=== PATIENT | male | born 1945 | race Caucasian/White ===

== ENCOUNTER 2023-11-27 16:41 | Inpatient (IN) ==
--- NOTE | 2023-11-27 17:26 | Emergency Department Note ---
Impression & Plan Acute CVA (cerebrovascular accident), New onset a-fib ED Provider Note NAME: NELLI GUTIERREZ AGE: 78 SEX: M : 1945 ARRIVES VIA: Walk-In INFORMANT: Patient ED PROVIDER(S): Mick Garcia DO CHIEF COMPLAINT: AMS HPI: Patient is an 78-year-old male who presents to the ER with a past medical history of a malignant tumor of the tonsil, anxiety and depression, traumatic subdural who presents to the ER for altered mental status. He was sitting at the bingo game was having trouble using his left arm and also was unresponsive for short period of time. He was brought in after being evaluated by EMS at which point he was back to normal. Family notes that he has been little bit more agitated. No history of A-fib. Denies any headache or change in vision. No chest pain or shortness of breath. No nausea, vomiting, or diarrhea. No dysuria, urgency, or frequency. No other exacerbating or remitting factors. Denies any weakness or numbness in the arms or legs. ADDITIONAL HISTORY OBTAINED: Per HPI Chronic Medical/Social Conditions Affecting Care: Per HPI PAST MEDICAL HISTORY:See Below PAST SURGICAL HISTORY:See Below FAMILY HISTORY:See Below SOCIAL HISTORY:See Below HOME MEDICATIONS:See Below ALLERGIES:See Below VITALS:See Below PHYSICAL EXAMINATION: GENERAL: Sitting up in bed, alert, well appearing, well nourished, no distress, non-toxic EYE EXAM: normal conjunctiva. OROPHARYNX: mucous membranes are moist NECK: supple, no nuchal rigidity, no adenopathy, non-tender LUNGS: Clear to auscultation. Normal chest wall mechanics HEART: no murmurs, S1 normal and S2 normal ABDOMEN: abdomen soft, non-tender, normo-active bowel sounds, no masses, no rebound or guarding. UPPER EXTREMITIES: upper extremities are grossly normal. LOWER EXTREMITIES: No pitting edema. NEURO EXAM: Normal sensorium, cranial nerves II-XII grossly intact, normal speech, no gross weakness of arms, no gross weakness of legs. MEDICAL DECISION MAKING: Patient is an 78-year-old male who presents ER for above-stated complaint. IV was established blood work is obtained. Labs show no significant leukocytosis or anemia. BMP with a slightly elevated BUN at 32. Bilirubin at 2.7. Troponin negative. Lipase negative. EKG shows a rate controlled A-fib. Based on his history I am concerned that this may be consistent with CVA initially upon arrival he declined chest x-ray and wanted to leave. He was actually initially evaluated on scene and refused. Family was able to encourage him to come here. He refused x-rays and CTs initially but then was eventually agreeable. CT was obtained and does suggest a stroke. On his exam he has no focal deficit. He was hypertensive with systolics in the 190s to 200. We allowed for permissive hypertensive. After the diagnosis of stroke he requested to leave. I had a protracted conversation with him as well as 3 other family members and had multiple family members on the phone conversing with him and after multiple attempts he was eventually agreeable to having some Ativan and staying. He did not want to stay as he had a bad experience at [place] and believes he is blessed that he made it to 78 and is not afraid of dying or having a stroke. Patient was eventually agreeable to taking aspirin and the Ativan and was admitted for further workup. Consults/Care Managements Discussions: Per [facility] Triage Nursing notes reviewed. Limited review of prior medical records performed Vital Signs: reviewed and remarkable for no significant abnormalities Differential diagnosis: Differential diagnoses includes but is not limited to toxic, metabolic, infectious, traumatic, cardiac, neurologic, hematologic, psychiatric and inflammatory etiologies. ER treatment provided: See below Diagnostics interpreted by me include EKG and cardiac monitoring as listed below: -Cardiac Monitoring: An order was placed for continuous cardiac monitoring. The monitor shows a rate of 60 with A-fib rhythm. -ECG: A-fib rate 65 Left axis No PVCs QTc 447 -Laboratory studies:Interpreted by me as stated above in MDM and shown below. 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 Seizure Malignant tumor of tonsil Hypercholesteremia Medical History History of fall Social History Smoking Status: Never smoker Preferred Language: Turkmen Feels Safe at Home: Yes Allergies Allergies Allergy/AdvReac Type Severity Reaction Status Date / Time No Known Allergies Allergy Verified 11/27/23 19:43 Home Meds Home Medications Medication Instructions Recorded Confirmed ascorbic acid (vitamin C) 500 mg 500 mg PO QDL 01/24/23 11/27/23 capsule atorvastatin 40 mg tablet 40 mg PO QPM 01/24/23 11/27/23 glucosam 750 mg-chondroi 100 1 tab PO QDL 01/24/23 11/27/23 mg-hyalur 1.65 mg-CF borate 108 mg tablet ([facility] [employer]) levetiracetam 500 mg tablet 500 mg PO BID 01/24/23 11/27/23 lisinopril 20 mg tablet 20 mg PO BID 01/24/23 11/27/23 metoprolol succinate 25 mg 12.5 mg PO QPM 01/24/23 11/27/23 tablet,extended release 24 hr multivitamin (Multiple Vitamins 1 tab PO QDL 01/24/23 11/27/23 tablet) acetaminophen 500 mg tablet 500 - 1,000 mg PO Q6H PRN 11/27/23 11/27/23 (Tylenol Extra Strength) PAIN/FEVER amlodipine 2.5 mg tablet 2.5 mg PO QAM 11/27/23 11/27/23 tamsulosin 0.4 mg capsule 0.4 mg PO QPM 11/27/23 11/27/23 trazodone 50 mg tablet 50 mg PO QPM 11/27/23 11/27/23 Results & Data (ED) Vital Signs Vital Signs - 24 hr 11/27/23 16:53 11/27/23 17:14 11/27/23 17:27 Temperature 36.8 C Temperature Source Temporal Artery Scan Pulse Rate 72 57 L Pulse Rate [Apical] 61 Pulse Rhythm Regular Pulse Strength Normal Respiratory Rate 18 17 Respiratory Effort / Characteristics Non-Labored Spontaneous Respiratory Depth Normal Respiratory Pattern Regular Blood Pressure 201/86 H Blood Pressure [Right Arm] 209/129 H Blood Pressure Mean 124 Blood Pressure Mean [Right Arm] 155 Blood Pressure Position Sitting Pulse Oximetry 97 97 Oxygen Delivery Method Room Air Room Air Sepsis Recent Fever Within 48 Hours No Sepsis New/Unexplained Change in Mental Status No Sepsis Action Taken by Nursing No Action Required 11/27/23 17:27 11/27/23 19:06 11/27/23 21:12 Temperature Temperature Source Pulse Rate Pulse Rate [Apical] 59 L 57 L Pulse Rhythm Pulse Strength Respiratory Rate 18 15 Respiratory Effort / Characteristics Respiratory Depth Respiratory Pattern Blood Pressure Blood Pressure [Right Arm] 198/94 H 178/81 H Blood Pressure Mean Blood Pressure Mean [Right Arm] 128 113 Blood Pressure Position Pulse Oximetry 97 99 97 Oxygen Delivery Method Room Air Room Air Room Air Sepsis Recent Fever Within 48 Hours Sepsis New/Unexplained Change in Mental Status Sepsis Action Taken by Nursing Laboratory Data 11/27/23 17:23 11/27/23 17:23 Lab Results 11/27/23 Range/Units 17:23 WBC 6.72 (4.8-10.8) K/ul RBC 5.02 (4.70-6.10) M/uL Hgb 15.7 (14.0-18.0) g/dl Hct 46.7 (42.0-52.0) % MCV 93.0 (80.0-100.0) fL MCH 31.3 (25.0-34.0) pg MCHC 33.6 (32.0-36.0) g/dL RDW Std Deviation 44.5 (36.4-46.3) fL RDW Coeff of Martir 13.2 (11.5-14.5) % Plt Count 162 (130-400) K/uL MPV 9.6 (9.4-12.4) fL Immature Gran % (Auto) 0.1 % Neut % (Auto) 79.1 % Lymph % (Auto) 6.8 % Runnels % (Auto) 12.9 % Eos % (Auto) 0.7 % Baso % (Auto) 0.4 % Neut # (Auto) 5.30 (1.40-6.50) K/uL Lymph # (Auto) 0.46 L (1.20-3.40) K/uL Runnels # (Auto) 0.87 H (0.11-0.59) K/uL Eos # (Auto) 0.05 (0.00-0.50) K/uL Baso # (Auto) 0.03 (0.00-0.20) K/uL Immature Gran # (Auto) 0.01 (0.01-0.20) K/uL Sodium 142 (136-145) mmol/L Potassium 3.9 (3.5-5.1) mmol/L Chloride 104 (98-107) mmol/L Carbon Dioxide 29 (21-32) mmol/L Anion Gap 9 (3-11) BUN 32 H (6-23) mg/dl Creatinine 1.13 (0.6-1.4) mg/dl Est Cr Clr Drug Dosing 57.2 ml/min Est GFR ( Amer) 70.8 ml/min Est GFR (Non-Af Amer) 61.1 ml/min BUN/Creatinine Ratio 28.3 H (10-20) Glucose 102 H (70-99(Fasting)) mg/dl Calcium 10.1 (8.6-10.3) mg/dl Total Bilirubin 2.7 H (0.2-1.0) mg/dl AST 20 (13-39) U/L ALT 14 (7-52) U/L Alkaline Phosphatase 151 H (34-104) U/L Troponin I High Sens 10.4 (0-20) pg/ml Total Protein 8.0 (6.0-8.3) gm/dl Albumin 4.9 (3.4-5.0) gm/dl Globulin 3.1 (2.5-4.0) gm/dl Albumin/Globulin Ratio 1.6 (0.9-2) Lipase 22 (11-82) U/L Administered Medications Discontinued Medications Aspirin (Aspirin Chew 324 Mg) 324 mg PO NOW STA Stop: 11/27/23 21:10 Last Admin: 11/27/23 21:30 Dose: 324 mg Documented By: LAURI Ioversol (Optiray 320 125ml) 119 ml IV ONCE ONE Stop: 11/27/23 18:35 Last Admin: 11/27/23 18:34 Dose: 119 ml Documented By: VERA Lorazepam (Lorazepam 1 Mg/1 Ml Syr Ed Inj Use) 1 mg IV ONE STA Stop: 11/27/23 19:55 Last Admin: 11/27/23 20:03 Dose: 1 mg Documented By: LAURI Imaging Data Radiologist's Impression: Chest X-Ray 11/27/23 17:18 XR chest 1V portable CLINICAL HISTORY: Chest pain, nonspecific TECHNIQUE: Single frontal radiograph of the chest was obtained. Comparison: None available at the time of this dictation. FINDINGS: No lines and tubes are seen. Cardiomegaly is noted. The aortic arch is calcified. The lungs are clear. No evidence of pleural effusion or pneumothorax. IMPRESSION: No acute chest disease. ACT 112: Negative or not required by law. Electronically signed by: Syed Kahn M.D. 11/27/2023 6:42 PM Head CTA 11/27/23 17:18 CR Exam(s): CTA HEAD W/WO Contrast IV Amt: 119 cc opti 320 EXAM: CT Angiography Head Without and With Intravenous Contrast CLINICAL HISTORY: Reason for exam: ams. TECHNIQUE: Axial computed tomographic angiography images of the head without and with intravenous contrast. CTDI is 35 mGy and DLP is 490.49 mGy-cm. Automated exposure control was utilized for the study. A dose lowering technique was utilized adhering to the principles of ALARA. MIP reconstructed images were created and reviewed. CONTRAST: Patient received 119 cc opti 320 of IV contrast COMPARISON: No relevant prior studies available. FINDINGS: VASCULATURE: Right internal carotid artery: Atherosclerotic calcifications within the cavernous right ICA causing approximately 50% stenosis. No aneurysm. Right anterior cerebral artery: Unremarkable. No occlusion or significant stenosis. No aneurysm. Right middle cerebral artery: No visualized thrombus within the right MCA. No aneurysm. Right posterior cerebral artery: Unremarkable. No occlusion or significant stenosis. No aneurysm. Right vertebral artery: Unremarkable as visualized. Left internal carotid artery: Atherosclerotic calcifications within the left cavernous ICA causing approximately 75% stenosis. No aneurysm. Left anterior cerebral artery: Unremarkable. No occlusion or significant stenosis. No aneurysm. Left middle cerebral artery: Unremarkable. No occlusion or significant stenosis. No aneurysm. Left posterior cerebral artery: Unremarkable. No occlusion or significant stenosis. No aneurysm. Left vertebral artery: Unremarkable as visualized. Basilar artery: Unremarkable. No occlusion or significant stenosis. No aneurysm. HEAD: Brain: Low-attenuation within the right posterior temporal lobe suspicious for acute infarct. No hemorrhage or mass-effect. Ventricles: Unremarkable. No ventriculomegaly. Bones/joints: No acute fracture. Soft tissues: Unremarkable. Sinuses: Unremarkable as visualized. No acute sinusitis. Mastoid air cells: Unremarkable as visualized. No mastoid effusion. IMPRESSION: 1. Low-attenuation within the right posterior temporal lobe suspicious for acute infarct. No hemorrhage or mass-effect. 2. No visualized thrombus within the right MCA. 3. Atherosclerotic calcifications within the cavernous right ICA causing approximately 50% stenosis. 4. Atherosclerotic calcifications within the left cavernous ICA causing approximately 75% stenosis. Communications: Call Doctor Stroke Electronically signed by: Panchito Clements MD 11/27/23 19:35 PM Neck CTA 11/27/23 17:18 Exam(s): CTA NECK With Contrast IV Amt: 119 cc opti 320 EXAM: CT Angiography Neck With Intravenous Contrast CLINICAL HISTORY: Reason for exam: ams. TECHNIQUE: Routine carotid CT angiography protocol was performed with intravenous contrast. NASCET criteria using the distal ICAs for comparison were used for evaluation of stenoses. CTDI is 35.29 mGy and DLP is 624.41 mGy-cm. Automated exposure control was utilized for the study. A dose lowering technique was utilized adhering to the principles of ALARA. MIP reconstructed images were created and reviewed. CONTRAST: Patient received 119 cc opti 320 of IV contrast COMPARISON: None. FINDINGS: VASCULATURE: Right common carotid artery: Unremarkable. No occlusion or significant stenosis. No dissection. Right internal carotid artery: Atherosclerotic calcifications at the right carotid bulb. Less than 50% stenosis. No dissection. Right vertebral artery: Unremarkable. No occlusion or significant stenosis. No dissection. Left common carotid artery: Unremarkable. No occlusion or significant stenosis. No dissection. Left internal carotid artery: Unremarkable. Extracranial segment is patent with no occlusion or significant stenosis. No dissection. Left vertebral artery: Unremarkable. No occlusion or significant stenosis. No dissection. Aorta: Mild aneurysmal proximal descending thoracic aorta measuring 4. 1 cm. NECK: Bones/joints: Multilevel degenerative changes within the cervical spine. No acute fracture. Soft tissues: Unremarkable. Lung apices: Clear. CAROTID STENOSIS REFERENCE USING NASCET CRITERIA: % ICA stenosis = (1 - narrowest ICA diameter/diameter of distal cervical ICA) x 100. Mild - <50% stenosis. Moderate - 50-69% stenosis. Severe - 70-94% stenosis. Near occlusion - 95-99% stenosis. Occluded - 100% stenosis. IMPRESSION: 1. No flow-limiting stenosis within the cervical arteries. 2. 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 Electronically signed by: Panchito Clements MD 11/27/23 19:29 PM Discharge Plan Visit Data Chief Complaint: Hypertension Stated Complaint: A FIB,HYPERTENSION, HEART RATE LOW ED Provider: Mick Garcia Discharge Problem: Acute CVA (cerebrovascular accident), New onset a-fib Forms Stand Alone Forms: My [facility] Prescriptions Prescriptions: No Action metoprolol succinate 25 mg tablet extended release 24 hr 12.5 mg PO QPM lisinopril 20 mg tablet 20 mg PO BID levetiracetam 500 mg tablet 500 mg PO BID atorvastatin 40 mg tablet 40 mg PO QPM multivitamin [Multiple Vitamins] Tablet 1 tab PO QDL [facility] [employer] [facility] 750 mg-100 mg- 1.65 mg-108 mg tablet 1 tab PO QDL ascorbic acid (vitamin C) 500 mg capsule 500 mg PO QDL trazodone 50 mg tablet 50 mg PO QPM amlodipine 2.5 mg tablet 2.5 mg PO QAM acetaminophen [Tylenol Extra Strength] 500 mg Tablet 500 - 1,000 mg PO Q6H PRN (Reason: PAIN/FEVER) tamsulosin 0.4 mg capsule 0.4 mg PO QPM Referrals Referrals: Mary Ann Ha [Primary Care Provider] -
[2023-11-27 17:47] LABS: Basophils # (auto) 0.03 K/uL (0.00-0.20); Basophils % (auto) 0.4 %; Eosinophils # (auto) 0.05 K/uL (0.00-0.50); Eosinophils % (auto) 0.7 %; Hematocrit (blood only) 46.7 % (42.0-52.0); Hemoglobin 15.7 g/dl (14.0-18.0); Immature Granulocytes # (auto) 0.01 K/uL (0.01-0.20); Immature Granulocytes % (auto) 0.1 %; Lymphocytes # (auto) 0.46 K/uL (1.20-3.40); Lymphocytes % (auto) 6.8 %; Mean Corpuscular Hemoglobin 31.3 pg (25.0-34.0); Mean Corpuscular Hgb Conc 33.6 g/dL (32.0-36.0); Mean Platelet Volume 9.6 fL (9.4-12.4); Monocytes # (auto) 0.87 K/uL (0.11-0.59); Monocytes % (auto) 12.9 %; Neutrophils % (auto) 79.1 %; Platelet Count 162 K/uL (130-400); RDW Coefficient of Variation 13.2 % (11.5-14.5); RDW Standard Deviation 44.5 fL (36.4-46.3); Red Blood Count 5.02 M/uL (4.70-6.10); White Blood Count 6.72 K/ul (4.8-10.8)
[2023-11-27 18:06] LABS: Albumin Globulin Ratio 1.6 (0.9-2); Albumin Level 4.9 gm/dl (3.4-5.0); BUN Creatinine Ratio 28.3 (10-20); Bilirubin,Total 2.7 mg/dl (0.2-1.0); Calcium 10.1 mg/dl (8.6-10.3); Creatinine Clr Calc Pharmacy 57.2 ml/min; Est GFR (African American) 70.8 ml/min; Est GFR (Non-African American) 61.1 ml/min; Globulin 3.1 gm/dl (2.5-4.0); Potassium 3.9 mmol/L (3.5-5.1)
[2023-11-27 18:10] LABS: Troponin I High Sensitivity 10.4 pg/ml (0-20)
[2023-11-27] MEDS: OPTIRAY 320 125ml IV ONE (18:34)
--- NOTE | 2023-11-27 18:43 | XRay Report ---
XR chest 1V portable CLINICAL HISTORY: Chest pain, nonspecific TECHNIQUE: Single frontal radiograph of the chest was obtained. Comparison: None available at the time of this dictation. FINDINGS: No lines and tubes are seen. Cardiomegaly is noted. The aortic arch is calcified. The lungs are clear . No evidence of pleural effusion or pneumothorax. IMPRESSION: No acute chest disease. ACT 112: Negative or not required by law. Electronically signed by: Syed Kahn M.D. 11/27/2023 6:42 PM
--- NOTE | 2023-11-27 19:30 | CT Scan Report ---
Exam(s): CTA NECK With Contrast IV Amt: 119 cc opti 320 EXAM: CT Angiography Neck With Intravenous Contrast CLINICAL HISTORY: Reason for exam: ams. TECHNIQUE: Routine carotid CT angiography protocol was performed with intravenous contrast. NASCET criteria using the distal ICAs for comparison were used for evaluation of stenoses. CTDI is 35.29 mGy and DLP is 624.41 mGy-cm. Automated exposure control was utilized for the study. A dose lowering technique was utilized adhering to the principles of ALARA. MIP reconstructed images were created and reviewed. CONTRAST: Patient received 119 cc opti 320 of IV contrast COMPARISON: None. FINDINGS: VASCULATURE: Right common carotid artery: Unremarkable. No occlusion or significant stenosis. No dissection. Right internal carotid artery: Atherosclerotic calcifications at the right carotid bulb. Less than 50% stenosis. No dissection. Right vertebral artery: Unremarkable. No occlusion or significant stenosis. No dissection. Left common carotid artery: Unremarkable. No occlusion or significant stenosis. No dissection. Left internal carotid artery: Unremarkable. Extracranial segment is patent with no occlusion or significant stenosis. No dissection. Left vertebral artery: Unremarkable. No occlusion or significant stenosis. No dissection. Aorta: Mild aneurysmal proximal descending thoracic aorta measuring 4. 1 cm. NECK: Bones/joints: Multilevel degenerative changes within the cervical spine. No acute fracture. Soft tissues: Unremarkable. Lung apices: Clear. CAROTID STENOSIS REFERENCE USING NASCET CRITERIA: % ICA stenosis = (1 - narrowest ICA diameter/diameter of distal cervical ICA) x 100. Mild - <50% stenosis. Moderate - 50-69% stenosis. Severe - 70-94% stenosis. Near occlusion - 95-99% stenosis. Occluded - 100% stenosis. IMPRESSION: 1. No flow-limiting stenosis within the cervical arteries. 2. 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 Electronically signed by: Panchito Clements MD 11/27/23 19:29 PM
--- NOTE | 2023-11-27 19:36 | CT Scan Report ---
Exam(s): CTA HEAD W/WO Contrast IV Amt: 119 cc opti 320 EXAM: CT Angiography Head Without and With Intravenous Contrast CLINICAL HISTORY: Reason for exam: ams. TECHNIQUE: Axial computed tomographic angiography images of the head without and with intravenous contrast. CTDI is 35 mGy and DLP is 490.49 mGy-cm. Automated exposure control was utilized for the study. A dose lowering technique was utilized adhering to the principles of ALARA. MIP reconstructed images were created and reviewed. CONTRAST: Patient received 119 cc opti 320 of IV contrast COMPARISON: No relevant prior studies available. FINDINGS: VASCULATURE: Right internal carotid artery: Atherosclerotic calcifications within the cavernous right ICA causing approximately 50% stenosis. No aneurysm. Right anterior cerebral artery: Unremarkable. No occlusion or significant stenosis. No aneurysm. Right middle cerebral artery: No visualized thrombus within the right MCA. No aneurysm. Right posterior cerebral artery: Unremarkable. No occlusion or significant stenosis. No aneurysm. Right vertebral artery: Unremarkable as visualized. Left internal carotid artery: Atherosclerotic calcifications within the left cavernous ICA causing approximately 75% stenosis. No aneurysm. Left anterior cerebral artery: Unremarkable. No occlusion or significant stenosis. No aneurysm. Left middle cerebral artery: Unremarkable. No occlusion or significant stenosis. No aneurysm. Left posterior cerebral artery: Unremarkable. No occlusion or significant stenosis. No aneurysm. Left vertebral artery: Unremarkable as visualized. Basilar artery: Unremarkable. No occlusion or significant stenosis. No aneurysm. HEAD: Brain: Low-attenuation within the right posterior temporal lobe suspicious for acute infarct. No hemorrhage or mass-effect. Ventricles: Unremarkable. No ventriculomegaly. Bones/joints: No acute fracture. Soft tissues: Unremarkable. Sinuses: Unremarkable as visualized. No acute sinusitis. Mastoid air cells: Unremarkable as visualized. No mastoid effusion. IMPRESSION: 1. Low-attenuation within the right posterior temporal lobe suspicious for acute infarct. No hemorrhage or mass-effect. 2. No visualized thrombus within the right MCA. 3. Atherosclerotic calcifications within the cavernous right ICA causing approximately 50% stenosis. 4. Atherosclerotic calcifications within the left cavernous ICA causing approximately 75% stenosis. Communications: Call Doctor Stroke Electronically signed by: Panchito Clements MD 11/27/23 19:35 PM
[2023-11-27] MEDS: LORazepam 1 MG/1 ML SYR ED Inj Use IV STA (20:03)
[2023-11-27] MEDS: ASPIRIN CHEW 324 MG PO STA (21:30)
--- NOTE | 2023-11-27 21:57 | History & Physical Report ---
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 For the subdural hematoma he did not had any surgeries. He again soon presented with seizures and at the time seems subdural hematoma was getting bigger and was loaded with Dilantin as per records. As per daughter since then his Eliquis and aspirin was stopped. In 2022 he was started treatment for tonsillar cancer with chemo and radiation and finished with therapy. And since then he is in remission as per daughter. Currently lives alone. Ambulates without support though is somewhat wobbly as per daughter. Eats regular food. No recent illness. Patient seems today around 230pm playing bingo when he suddenly became confused for about 5 minutes and then after that he was not able to use his left arm ,EMS was called and brought him here .Currently is back to his usual self. CT scan showing possible CVA. Currently alert and oriented. Denies any headache. Denies any dizziness. No blurred vision. Somewhat hard of hearing. No runny nose. No sore throat. No cough. No fevers. No chest pain or shortness of breath. No nausea and abdominal pain. Normal bowel and bladder movements. Ambulated to bathroom in Er per daughter.Hemodynamics are okay. Per ER initially has been difficult to get him admitted but finally agreed. Daughter is in the room who provided most of the history. Acute CVA Around 2:30 PM had an episode of confusion for 5 minutes and not able to use his left upper extremity. Currently seems back to normal CTA head showing Low-attenuation within the right posterior temporal lobe suspicious for acute infarct. No hemorrhage or mass-effect. 75% stenosis in left ICA [id number] was given in the ER. Will continue with aspirin 81mg daily Will allow permissive hypertension Ordered stat MRI head Neurochecks Patient on statin Follow HbA1c level and lipid profile Telemetry Speech evaluation PT OT evaluation N.p.o. for now MRI results came back showing moderate to large acute to subacute infarct of the right temporal lobe- d/w [facility] neurology as its large infarct advised to wait atleast 5-7 days before starting anticoagulation for A.fib if no other contraindications exist as he had history of fall before. Neurology consult in a.m. for further recommendations close monitor A-fib Patient has history of A-fib On metoprolol aspirin and Eliquis stopped after subdural hematoma Will follow echo Cardiology consult in a.m. for further recommendations History of seizures On Keppra Hypertension Continue amlodipine and metoprolol Hold lisinopril for permissive hypertension Hyperlipidemia On statin BPH On Flomax History of tonsil cancer left side Status post chemo and radiation Status post left CEA DVT prophylaxis SCDs Disposition Telemetry Full code. 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 For the subdural hematoma he did not had any surgeries. He again soon presented with seizures and at the time seems subdural hematoma was getting bigger and was loaded with Dilantin as per records. As per daughter since then his Eliquis and aspirin was stopped. In 2022 he was started treatment for tonsillar cancer with chemo and radiation and finished with therapy. And since then he is in remission as per daughter. Currently lives alone. Ambulates without support though is somewhat wobbly as per daughter. Eats regular food. No recent illness. Patient seems today around 230pm playing bingo when he suddenly became confused for about 5 minutes and then after that he was not able to use his left arm ,EMS was called and brought him here .Currently is back to his usual self. CT scan showing possible CVA. Currently alert and oriented. Denies any headache. Denies any dizziness. No blurred vision. Somewhat hard of hearing. No runny nose. No sore throat. No cough. No fevers. No chest pain or shortness of breath. No nausea and abdominal pain. Normal bowel and bladder movements. Ambulated to bathroom in Er per daughter.Hemodynamics are okay. Per ER initially has been difficult to get him admitted but finally agreed. Daughter is in the room who provided most of the history. Past medical history as mentioned above Past surgical history. Left carotid endarterectomy in 2020 Social history. Quit smoking about 20-25 years ago. Smoked 1 pack a day for many years as per daughter. Seems had [id number] smoking. Was a heavy drinker and quit alcohol about 3 years ago as per daughter. Family history. Sister had lung cancer. Allergies Allergy/AdvReac Type Severity Reaction Status Date / Time No Known Allergies Allergy Verified 11/27/23 19:43 Home Medications Medication Instructions Recorded Confirmed Type ascorbic acid (vitamin C) 500 mg 500 mg PO QDL 01/24/23 11/27/23 History capsule atorvastatin 40 mg tablet 40 mg PO QPM 01/24/23 11/27/23 History glucosam 750 mg-chondroi 100 1 tab PO QDL 01/24/23 11/27/23 History mg-hyalur 1.65 mg-CF borate 108 mg tablet ([facility]) levetiracetam 500 mg tablet 500 mg PO BID 01/24/23 11/27/23 History lisinopril 20 mg tablet 20 mg PO BID 01/24/23 11/27/23 History metoprolol succinate 25 mg 12.5 mg PO QPM 01/24/23 11/27/23 History tablet,extended release 24 hr multivitamin (Multiple Vitamins 1 tab PO QDL 01/24/23 11/27/23 History tablet) acetaminophen 500 mg tablet 500 - 1,000 mg PO Q6H PRN 11/27/23 11/27/23 History (Tylenol Extra Strength) PAIN/FEVER amlodipine 2.5 mg tablet 2.5 mg PO QAM 11/27/23 11/27/23 History tamsulosin 0.4 mg capsule 0.4 mg PO QPM 11/27/23 11/27/23 History trazodone 50 mg tablet 50 mg PO QPM 11/27/23 11/27/23 History Past Med/Surg History Problem List New onset a-fib (Acute) Acute CVA (cerebrovascular accident) (Acute) Traumatic subdural hemorrhage Mixed anxiety and depressive disorder Seizure Malignant tumor of tonsil Hypercholesteremia Medical History History of fall Social History Smoking Status: Former smoker Tobacco Type: Cigarettes Smoking End Date: 2013; Second Hand Exposure: No; Tobacco Cessation Education Requested by Patient: No Hx Alcohol Use: No Hx Substance Use: No Preferred Language: Syriac Communication Ability: Effective Food Service Clerk Required: No Beliefs That Will Affect Care: None Current Living Situation: Alone Current Living Situation Comment: [facility] Other Information That Helps Us Care for You: No Feels Safe at Home: Yes Safety Concerns: Feels Safe At This Time Assistive Devices: Glasses and Hearing Aid - Bilateral Review of Systems Review of Systems: All systems reviewed & are unremarkable except as noted in HPI & below Physical Exam Physical Exam: General- Not in distress.Hard of hearing Head- atraumatic Eyes- PERRL. ENT- oropharynx clear Neck- supple, no JVD. Lungs- clear to auscultation no wheezing or crackles Heart- ir rhythm; no murmur, no gallop. Abdomen- normal bowel sounds, soft, nontender, no distension Extremities- no pretibial edema, no erythema seen Neuro- alert, oriented ; PERRL, no facial palsy; no dysarthria; motor 5/5 b ilaterally; no pronator drift, normal co ordination of movements, sensations and position sense intact. obeys simple commands Skin- warm & dry Results & Data Results & Data Vital Signs (Past 12 Hours) Vital Signs Temp Pulse Pulse Resp BP BP Pulse Ox 11/27/23 21:12 57 L 15 178/81 H 97 11/27/23 19:06 59 L 18 198/94 H 99 11/27/23 17:27 97 11/27/23 17:27 61 17 209/129 H 97 11/27/23 17:14 57 L 11/27/23 16:53 36.8 C 72 18 201/86 H 97 O2 Del Method 11/27/23 21:12 Room Air 11/27/23 19:06 Room Air 11/27/23 17:27 Room Air 11/27/23 17:27 Room Air 11/27/23 17:14 11/27/23 16:53 Room Air Diagnostic Findings Laboratory Results WBC 6.72 K/ul (4.8-10.8) 11/27/23 17:23 RBC 5.02 M/uL (4.70-6.10) 11/27/23 17:23 Hgb 15.7 g/dl (14.0-18.0) 11/27/23 17:23 Hct 46.7 % (42.0-52.0) 11/27/23 17:23 MCV 93.0 fL (80.0-100.0) 11/27/23 17:23 MCH 31.3 pg (25.0-34.0) 11/27/23 17:23 MCHC 33.6 g/dL (32.0-36.0) 11/27/23 17:23 RDW Std Deviation 44.5 fL (36.4-46.3) 11/27/23 17:23 RDW Coeff of Martir 13.2 % (11.5-14.5) 11/27/23 17:23 Plt Count 162 K/uL (130-400) 11/27/23 17:23 MPV 9.6 fL (9.4-12.4) 11/27/23 17:23 Immature Gran % (Auto) 0.1 % 11/27/23 17:23 Neut % (Auto) 79.1 % 11/27/23 17:23 Lymph % (Auto) 6.8 % 11/27/23 17:23 [place] % (Auto) 12.9 % 11/27/23 17:23 Eos % (Auto) 0.7 % 11/27/23 17:23 Baso % (Auto) 0.4 % 11/27/23 17:23 Neut # (Auto) 5.30 K/uL (1.40-6.50) 11/27/23 17:23 Lymph # (Auto) 0.46 K/uL (1.20-3.40) L 11/27/23 17:23 [place] # (Auto) 0.87 K/uL (0.11-0.59) H 11/27/23 17:23 Eos # (Auto) 0.05 K/uL (0.00-0.50) 11/27/23 17:23 Baso # (Auto) 0.03 K/uL (0.00-0.20) 11/27/23 17:23 Immature Gran # (Auto) 0.01 K/uL (0.01-0.20) 11/27/23 17:23 Sodium 142 mmol/L (136-145) 11/27/23 17:23 Potassium 3.9 mmol/L (3.5-5.1) 11/27/23 17:23 Chloride 104 mmol/L (98-107) 11/27/23 17:23 Carbon Dioxide 29 mmol/L (21-32) 11/27/23 17:23 Anion Gap 9 (3-11) 11/27/23 17:23 BUN 32 mg/dl (6-23) H 11/27/23 17:23 Creatinine 1.13 mg/dl (0.6-1.4) 11/27/23 17:23 Est Cr Clr Drug Dosing 57.2 ml/min 11/27/23 17:23 Est GFR ( Amer) 70.8 ml/min 11/27/23 17:23 Est GFR (Non-Af Amer) 61.1 ml/min 11/27/23 17:23 BUN/Creatinine Ratio 28.3 (10-20) H 11/27/23 17:23 Glucose 102 mg/dl (70-99(Fasting)) H 11/27/23 17:23 Calcium 10.1 mg/dl (8.6-10.3) 11/27/23 17:23 Total Bilirubin 2.7 mg/dl (0.2-1.0) H 11/27/23 17:23 AST 20 U/L (13-39) 11/27/23 17:23 ALT 14 U/L (7-52) 11/27/23 17:23 Alkaline Phosphatase 151 U/L (34-104) H 11/27/23 17:23 Troponin I High Sens 10.4 pg/ml (0-20) 11/27/23 17:23 Total Protein 8.0 gm/dl (6.0-8.3) 11/27/23 17:23 Albumin 4.9 gm/dl (3.4-5.0) 11/27/23 17:23 Globulin 3.1 gm/dl (2.5-4.0) 11/27/23 17:23 Albumin/Globulin Ratio 1.6 (0.9-2) 11/27/23 17:23 Lipase 22 U/L (11-82) 11/27/23 17:23 Impressions Chest X-Ray 11/27/23 17:18 XR chest 1V portable CLINICAL HISTORY: Chest pain, nonspecific TECHNIQUE: Single frontal radiograph of the chest was obtained. Comparison: None available at the time of this dictation. FINDINGS: No lines and tubes are seen. Cardiomegaly is noted. The aortic arch is calcified. The lungs are clear. No evidence of pleural effusion or pneumothorax. IMPRESSION: No acute chest disease. ACT 112: Negative or not required by law. Electronically signed by: Syed Kahn M.D. 11/27/2023 6:42 PM Head CTA 11/27/23 17:18 CR Exam(s): CTA HEAD W/WO Contrast IV Amt: 119 cc opti 320 EXAM: CT Angiography Head Without and With Intravenous Contrast CLINICAL HISTORY: Reason for exam: ams. TECHNIQUE: Axial computed tomographic angiography images of the head without and with intravenous contrast. CTDI is 35 mGy and DLP is 490.49 mGy-cm. Automated exposure control was utilized for the study. A dose lowering technique was utilized adhering to the principles of ALARA. MIP reconstructed images were created and reviewed. CONTRAST: Patient received 119 cc opti 320 of IV contrast COMPARISON: No relevant prior studies available. FINDINGS: VASCULATURE: Right internal carotid artery: Atherosclerotic calcifications within the cavernous right ICA causing approximately 50% stenosis. No aneurysm. Right anterior cerebral artery: Unremarkable. No occlusion or significant stenosis. No aneurysm. Right middle cerebral artery: No visualized thrombus within the right MCA. No aneurysm. Right posterior cerebral artery: Unremarkable. No occlusion or significant stenosis. No aneurysm. Right vertebral artery: Unremarkable as visualized. Left internal carotid artery: Atherosclerotic calcifications within the left cavernous ICA causing approximately 75% stenosis. No aneurysm. Left anterior cerebral artery: Unremarkable. No occlusion or significant stenosis. No aneurysm. Left middle cerebral artery: Unremarkable. No occlusion or significant stenosis. No aneurysm. Left posterior cerebral artery: Unremarkable. No occlusion or significant stenosis. No aneurysm. Left vertebral artery: Unremarkable as visualized. Basilar artery: Unremarkable. No occlusion or significant stenosis. No aneurysm. HEAD: Brain: Low-attenuation within the right posterior temporal lobe suspicious for acute infarct. No hemorrhage or mass-effect. Ventricles: Unremarkable. No ventriculomegaly. Bones/joints: No acute fracture. Soft tissues: Unremarkable. Sinuses: Unremarkable as visualized. No acute sinusitis. Mastoid air cells: Unremarkable as visualized. No mastoid effusion. IMPRESSION: 1. Low-attenuation within the right posterior temporal lobe suspicious for acute infarct. No hemorrhage or mass-effect. 2. No visualized thrombus within the right MCA. 3. Atherosclerotic calcifications within the cavernous right ICA causing approximately 50% stenosis. 4. Atherosclerotic calcifications within the left cavernous ICA causing approximately 75% stenosis. Communications: Call Doctor Stroke Electronically signed by: Panchito Clements MD 11/27/23 19:35 PM Neck CTA 11/27/23 17:18 Exam(s): CTA NECK With Contrast IV Amt: 119 cc opti 320 EXAM: CT Angiography Neck With Intravenous Contrast CLINICAL HISTORY: Reason for exam: ams. TECHNIQUE: Routine carotid CT angiography protocol was performed with intravenous contrast. NASCET criteria using the distal ICAs for comparison were used for evaluation of stenoses. CTDI is 35.29 mGy and DLP is 624.41 mGy-cm. Automated exposure control was utilized for the study. A dose lowering technique was utilized adhering to the principles of ALARA. MIP reconstructed images were created and reviewed. CONTRAST: Patient received 119 cc opti 320 of IV contrast COMPARISON: None. FINDINGS: VASCULATURE: Right common carotid artery: Unremarkable. No occlusion or significant stenosis. No dissection. Right internal carotid artery: Atherosclerotic calcifications at the right carotid bulb. Less than 50% stenosis. No dissection. Right vertebral artery: Unremarkable. No occlusion or significant stenosis. No dissection. Left common carotid artery: Unremarkable. No occlusion or significant stenosis. No dissection. Left internal carotid artery: Unremarkable. Extracranial segment is patent with no occlusion or significant stenosis. No dissection. Left vertebral artery: Unremarkable. No occlusion or significant stenosis. No dissection. Aorta: Mild aneurysmal proximal descending thoracic aorta measuring 4. 1 cm. NECK: Bones/joints: Multilevel degenerative changes within the cervical spine. No acute fracture. Soft tissues: Unremarkable. Lung apices: Clear. CAROTID STENOSIS REFERENCE USING NASCET CRITERIA: % ICA stenosis = (1 - narrowest ICA diameter/diameter of distal cervical ICA) x 100. Mild - <50% stenosis. Moderate - 50-69% stenosis. Severe - 70-94% stenosis. Near occlusion - 95-99% stenosis. Occluded - 100% stenosis. IMPRESSION: 1. No flow-limiting stenosis within the cervical arteries. 2. 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 Electronically signed by: Pancihto Clements MD 11/27/23 19:29 PM ECG Additional Comments: ECG. Atrial fibrillation with rate of 65. Incomplete right bundle branch block. Left anterior fascicular block. QTc 447 Code Status & VTE Plan VTE Prophylaxis Plan VTE Prophylaxis will be ordered: Yes
[2023-11-27] MEDS: GADOBUTROL 65ML VIAL IV ONE (23:15)
[2023-11-27] MEDS ORDERED: ACETAMINOPHEN 325 MG TAB PO PRN (23:48)
[2023-11-27] MEDS ORDERED: PHARMACIST DISCHARGE MED REC CONSULT PRN (23:48)
[2023-11-27] MEDS ORDERED: OLANZapine 10 MG/2.1 ML SDV IM PRN (23:48)
[2023-11-28] MEDS: SODIUM CHLORIDE 0.9% 1,000 ML IV SCH
--- NOTE | 2023-11-28 00:31 | Magnetic Resonance Report ---
Exam(s): MRI HEAD W/WO Contrast IV Amt: 8cc gadavist EXAM: MR Head Without and With Intravenous Contrast CLINICAL HISTORY: Stroke TECHNIQUE: Magnetic resonance images of the head/brain without and with intravenous contrast in multiple planes. CONTRAST: Patient received 8cc gadavist of IV contrast COMPARISON: CTA head 11/27/2023 FINDINGS: Brain: Moderate to large acute to subacute infarct of the right temporal lobe. Moderate periventricular white matter T2/flair signal abnormalities are most consistent with chronic microangiopathy. No hemorrhage. No abnormal enhancement. Ventricles: Unremarkable. No ventriculomegaly. Bones/joints: Unremarkable. No acute fracture. Sinuses: Unremarkable as visualized. No acute sinusitis. Mastoid air cells: Unremarkable as visualized. No mastoid effusion. Orbits: Unremarkable as visualized. IMPRESSION: Moderate to large acute to subacute infarct of the right temporal lobe. Communications: Call Doctor Stroke Electronically signed by: Paige Tanner MD 11/28/23 00:29 AM
[2023-11-28] MEDS: hydrALAZINE HCL 20 MG/ML VIAL IV ONE (00:35)
[2023-11-28] MEDS: levETIRAcetam 500 MG TAB PO SCH (00:53)
[2023-11-28] MEDS ORDERED: hydrALAZINE HCL 20 MG/ML VIAL IV PRN (02:25)
[2023-11-28 06:30] LABS: Basophils # (auto) 0.02 K/uL (0.00-0.20); Basophils % (auto) 0.4 %; Eosinophils # (auto) 0.12 K/uL (0.00-0.50); Eosinophils % (auto) 2.2 %; Hematocrit (blood only) 41.6 % (42.0-52.0); Hemoglobin 14.2 g/dl (14.0-18.0); Immature Granulocytes # (auto) 0.01 K/uL (0.01-0.20); Immature Granulocytes % (auto) 0.2 %; Lymphocytes # (auto) 0.49 K/uL (1.20-3.40); Lymphocytes % (auto) 8.8 %; Mean Corpuscular Hemoglobin 31.4 pg (25.0-34.0); Mean Corpuscular Hgb Conc 34.1 g/dL (32.0-36.0); Mean Platelet Volume 9.9 fL (9.4-12.4); Monocytes # (auto) 1.04 K/uL (0.11-0.59); Monocytes % (auto) 18.7 %; Neutrophils # (auto) 3.89 K/uL (1.40-6.50); Neutrophils % (auto) 69.7 %; Platelet Count 151 K/uL (130-400); RDW Coefficient of Variation 13.1 % (11.5-14.5); RDW Standard Deviation 43.8 fL (36.4-46.3); Red Blood Count 4.52 M/uL (4.70-6.10); White Blood Count 5.57 K/ul (4.8-10.8)
[2023-11-28 06:36] LABS: BUN Creatinine Ratio 24.4 (10-20); Calcium 9.2 mg/dl (8.6-10.3); Chol HDL Ratio 2.3 (0-5); Creatinine Clr Calc Pharmacy 71.9 ml/min; Est GFR (African American) 93.2 ml/min; Est GFR (Non-African American) 80.4 ml/min; Magnesium 1.9 mg/dl (1.7-2.4); Potassium 3.7 mmol/L (3.5-5.1)
[2023-11-28 07:19] LABS: Estimated Average Glucose 114 mg/dl; Hemoglobin A1C 5.6 % (4.5-5.6)
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
--- NOTE | 2023-11-28 08:42 | Electrocardiogram Report ---
Test Reason : Blood Pressure : */* mmHG Vent. Rate : 65 BPM Atrial Rate : * BPM P-R Int : * ms QRS Dur : 106 ms QT Int : 430 ms P-R-T Axes : * -61 24 degrees QTcB Int : 447 ms Atrial fibrillation Incomplete right bundle branch block Left anterior fascicular block Abnormal ECG No previous ECGs available Confirmed by Sujit Marie ([id number]) on 11/28/2023 8:41:48 AM Referred By: REFERRED SELF Confirmed By: Sujit Marie
[2023-11-28] MEDS: amLODIPine BESYLATE 5 MG TAB PO SCH (09:04)
[2023-11-28] MEDS: ASPIRIN 81 MG ECTAB PO SCH (09:04)
[2023-11-28 11:07] VITALS: RESP 16
[2023-11-28] MEDS: ASCORBIC ACID 500 MG TAB PO SCH (11:55)
[2023-11-28] MEDS: CEROVITE ADV FORMULA TAB PO SCH (11:55)
[2023-11-28 15:25] VITALS: BP 161/77; PULSE 61; TEMP 98.2; O2SAT 95
--- NOTE | 2023-11-28 15:30 | Electrocardiogram Report ---
Test Reason : Blood Pressure : */* mmHG Vent. Rate : 58 BPM Atrial Rate : 93 BPM P-R Int : * ms QRS Dur : 108 ms QT Int : 482 ms P-R-T Axes : * -66 -12 degrees QTcB Int : 473 ms Atrial fibrillation with slow ventricular response with premature ventricular or aberrantly conducted complexes Incomplete right bundle branch block Left anterior fascicular block Abnormal ECG When compared with ECG of 27-Nov-2023 17:15, Nonspecific T wave abnormality, worse in Inferior leads Confirmed by Sujit Marie ([id number]) on 11/28/2023 3:30:37 PM Referred By: REFERRED SELF Confirmed By: Sujit Marie
--- NOTE | 2023-11-28 15:52 | Hospitalist Progress Note ---
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 For the subdural hematoma he did not had any surgeries. He again soon presented with seizures and at the time seems subdural hematoma was getting bigger and was loaded with Dilantin as per records. As per daughter since then his Eliquis and aspirin was stopped. In 2022 he was started treatment for tonsillar cancer with chemo and radiation and finished with therapy. And since then he is in remission as per daughter. Currently lives alone. Ambulates without support though is somewhat wobbly as per daughter. Eats regular food. No recent illness. Patient seems today around 230pm playing bingo when he suddenly became confused for about 5 minutes and then after that he was not able to use his left arm ,EMS was called and brought him here .Currently is back to his usual self. CT scan showing possible CVA. Currently alert and oriented. Denies any headache. Denies any dizziness. No blurred vision. Somewhat hard of hearing. No runny nose. No sore throat. No cough. No fevers. No chest pain or shortness of breath. No nausea and abdominal pain. Normal bowel and bladder movements. Ambulated to bathroom in Er per daughter.Hemodynamics are okay. Per ER initially has been difficult to get him admitted but finally agreed. Daughter is in the room who provided most of the history. Acute CVA Around 2:30 PM had an episode of confusion for 5 minutes and not able to use his left upper extremity. Currently seems back to normal CTA head showing Low-attenuation within the right posterior temporal lobe suspicious for acute infarct. No hemorrhage or mass-effect. 75% stenosis in left ICA [id number] was given in the ER. Will continue with aspirin 81mg daily Will allow permissive hypertension Neurochecks MRI results came back showing moderate to large acute to subacute infarct of the right temporal lobe- d/w Ault tele neurology as its large infarct advised to wait atleast 5-7 days before starting anticoagulation for A.fib if no other contraindications exist as he had history of fall before. Speech evaluation PT OT evaluation Echo of the heart showedmild concentric LVH, LV wall motion is normal, EF 55 to 60%, left atrium is severely dilated, aortic valve sclerosis mild without significant stenosis, moderate mitral regurgitation and mild tricuspid regurgitation and pulmonary artery systolic pressure is estimated to be 35 to 40 mmHg Appreciate cardiology input and recommendation Appreciate neurology input and recommendations Continue aspirin for 5 days and then start Eliquis on 12/03/2023 Drink more fluid to avoid dehydration A-fib Patient has history of A-fib On metoprolol aspirin and Eliquis stopped after subdural hematoma Will follow echo-As above Cardiology consult in a.m. for further recommendations History of seizures On Keppra Hypertension Continue amlodipine and metoprolol Hold lisinopril for permissive hypertension Hyperlipidemia On statin BPH On Flomax History of tonsil cancer left side Status post chemo and radiation Status post left CEA DVT prophylaxis SCDs Disposition Telemetry Full code. Detailed discussion with the daughter in presence of the patient in the room Tried to persuade him to stay for another night to make sure the stroke does not get any worse Discussed about the risk of worsening of his symptoms and/or bleeding in the brain But the patient did not want to stay He was discharged home with the daughter Admission and Anticipated Discharge Date Admission Date: November 27, 2023 Subjective 11/28/2023 The patient was seen and examined in telemetry unit He was admitted with strokelike symptoms involving problem with concentrating and left upper extremity weakness Symptoms resolved but the MRI did not show acute stroke as below He wants to go home and it has been very difficult to keep him in the hospital Awaiting neuro evaluation for final PLAN Review of Systems Review of Systems: All systems reviewed and are unremarkable except as noted below Physical Exam Physical Exam: Sitting at the edge of the bed without any acute distress Constitutional: well developed, well nourished and average body habitus; not ill appearing Eyes: PERRL, conjunctivae normal, anicteric sclerae ENMT: external ear and nose normal, oropharynx normal Neck: trachea midline, no thyromegaly Respiratory: no respiratory distress Auscultation: lungs clear to auscultation bilaterally Cardiovascular: Rate/Rhythm: regular rate and regular rhythm; not tachycardic Heart Sounds: normal S1 and normal S2; no murmur Extremities: no edema Gastrointestinal (Abdomen): Inspection/Auscultation: normal bowel sounds; abdomen not distended Percussion/Palpation: abdomen soft; abdomen nontender Musculoskeletal: No acute arthritis involving any of the joints Neurologic: Alert awake and oriented No problems with speech and no focal neurological deficit Psychiatric: Speech: + pressured speech Affect: + anxious affect Lymphatic: no cervical or axillary lymphadenopathy Results & Data Results & Data Vital Signs (Past 12 Hours) Vital Signs Temp Pulse Pulse Resp BP Pulse Ox O2 Del Method 11/28/23 15:20 36.8 C 61 16 161/77 H 95 Room Air 11/28/23 11:05 36.7 C 63 16 135/76 96 Room Air 11/28/23 08:00 54 L Laboratory Results Short CBC 11/27/23 11/28/23 Range/Units 17:23 05:55 WBC 6.72 5.57 (4.8-10.8) K/ul Hgb 15.7 14.2 (14.0-18.0) g/dl Hct 46.7 41.6 L (42.0-52.0) % Plt Count 162 151 (130-400) K/uL [facility] 11/27/23 11/28/23 17:23 05:55 Sodium 142 142 Potassium 3.9 3.7 Chloride 104 107 Carbon Dioxide 29 29 BUN 32 H 22 Creatinine 1.13 0.90 Glucose 102 H 94 Calcium 10.1 9.2 Liver Function 11/27/23 Range/Units 17:23 Total Bilirubin 2.7 H (0.2-1.0) mg/dl AST 20 (13-39) U/L ALT 14 (7-52) U/L Alkaline Phosphatase 151 H (34-104) U/L Albumin 4.9 (3.4-5.0) gm/dl Medications Administered Current Inpatient Medications Acetaminophen (Acetaminophen 325 Mg Tab) 650 mg PO Q4H PRN PRN Reason: Pain or Fever Stop: 12/27/23 23:47 Amlodipine Besylate (Amlodipine Besylate 5 Mg Tab) 2.5 mg PO QAM [facility] Stop: 12/28/23 08:59 Last Admin: 11/28/23 09:04 Dose: 2.5 mg Ascorbic Acid (Ascorbic Acid 500 Mg Tab) 500 mg PO QDL [facility] Stop: 12/28/23 11:29 Last Admin: 11/28/23 11:55 Dose: 500 mg Aspirin (Aspirin 81 Mg Ectab) 81 mg PO QAM [facility] Stop: 12/28/23 08:59 Last Admin: 11/28/23 09:04 Dose: 81 mg Atorvastatin Calcium (Atorvastatin 40 Mg Tab) 40 mg PO QPM [facility] Stop: 12/28/23 20:59 Hydralazine HCl (Hydralazine Hcl 20 Mg/Ml Vial) 5 mg IV Q6H PRN PRN Reason: Hypertension Stop: 12/28/23 02:24 Levetiracetam (Levetiracetam 500 Mg Tab) 500 mg PO BID [facility] Stop: 12/27/23 23:47 Last Admin: 11/28/23 09:04 Dose: 500 mg Miscellaneous Information (Pharmacist Discharge Med Rec Consult) 1 each N/A UD PRN PRN Reason: Consult Stop: 12/27/23 23:47 Multivitamins/Minerals (Cerovite Adv Formula Tab) 1 tab PO QDL [facility] Stop: 12/28/23 11:29 Last Admin: 11/28/23 11:55 Dose: 1 tab Olanzapine (Olanzapine 10 Mg/2.1 Ml Sdv) 2.5 mg IM Q6H PRN PRN Reason: Agitation Stop: 12/27/23 23:47 Tamsulosin HCl (Tamsulosin Hcl 0.4 Mg Cap) 0.4 mg PO QPM [facility] Stop: 12/28/23 20:59 Trazodone HCl (Trazodone Hcl 50 Mg Tab) 50 mg PO QPM [facility] Stop: 12/28/23 20:59
--- NOTE | 2023-11-28 15:55 | Neurology Consultation ---
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 Echocardiogram with severe atrial dilatation Plan Recommend starting Eliquis in 5 days that will be 12/03/2023, for secondary stroke prevention. No need to continue aspirin after Eliquis was started Continue statins. Continue to rule out underlying infections. Patient was warned about dehydration and falls. Continue Keppra 500 mg twice daily for seizure prevention. Telehealth Consultation Telehealth Information Telehealth Information: I performed this visit using a real-time telehealth connection between my location and the patients location ([facility]). After connecting through interactive tele-video, patient was identified by name and date of and/or wristband check.Patient (or authorized healthcare bilingual call center representative) was informed that this was a telemedicine visit and it was being conducted confidentially over secure lines. My office door was closed and no one else was present in the room with me.Patient (or authorized healthcare bilingual call center representative) provided consent to proceed with the visit, expressed an understanding of privacy and security of the telemedicine visit, and gave permission to have a hospital bilingual call center representative in the room in order to assist with the visit and to conduct portions of the visit, as needed. I informed the patient (or authorized healthcare bilingual call center representative) that I reviewed their record and presented the opportunity for them to ask any questions regarding the visit today. The patient agreed to participate. History of Present Illness Reason for Consultation: acute ischemic stroke Requesting Physician: hayley Bello Attending Physician: Hayley Bello MD History of Present Illness Mr. Eduardo Michael is an 78-year-old male patient with PMH of atrial fibrillation, was previously obtained on Eliquis however this was stopped due to atraumatic subdural hematoma, the patient describes that he was dehydrated when this happened. Eliquis has not been resumed. Also has a history of seizure disorder hyperlipidemia. He was brought into the hospital because of confusion, he tells me that his daughter brought him to the hospital because they told her he was confused while he was playing bingo with his friends, he denies any visual changes, denies any numbness or weakness, denies any gait difficulty. Echocardiogram showed EF of 55 to 60%, left ventricular wall motion is normal, left atrium is severely dilated, there is moderate mitral regurgitation and moderate tricuspid regurgitation Allergies Allergy/AdvReac Type Severity Reaction Status Date / Time No Known Allergies Allergy Verified 11/27/23 19:43 Home Medications Medication Instructions Recorded Confirmed Type ascorbic acid (vitamin C) 500 mg 500 mg PO QDL 01/24/23 11/27/23 History capsule atorvastatin 40 mg tablet 40 mg PO QPM 01/24/23 11/27/23 History glucosam 750 mg-chondroi 100 1 tab PO QDL 01/24/23 11/27/23 History mg-hyalur 1.65 mg-CF borate 108 mg tablet ([facility]) levetiracetam 500 mg tablet 500 mg PO BID 01/24/23 11/27/23 History lisinopril 20 mg tablet 20 mg PO BID 01/24/23 11/27/23 History metoprolol succinate 25 mg 12.5 mg PO QPM 01/24/23 11/27/23 History tablet,extended release 24 hr multivitamin (Multiple Vitamins 1 tab PO QDL 01/24/23 11/27/23 History tablet) acetaminophen 500 mg tablet 500 - 1,000 mg PO Q6H PRN 11/27/23 11/27/23 History (Tylenol Extra Strength) PAIN/FEVER amlodipine 2.5 mg tablet 2.5 mg PO QAM 11/27/23 11/27/23 History tamsulosin 0.4 mg capsule 0.4 mg PO QPM 11/27/23 11/27/23 History trazodone 50 mg tablet 50 mg PO QPM 11/27/23 11/27/23 History Patient History Medical History History of fall Social History Smoking Status: Former smoker Tobacco Type: Cigarettes Smoking End Date: 2013; Second Hand Exposure: No; Tobacco Cessation Education Requested by Patient: No Hx Alcohol Use: No Hx Substance Use: No Preferred Language: Kinyarwanda Communication Ability: Effective Tool Designer Required: No Beliefs That Will Affect Care: None Current Living Situation: Alone Current Living Situation Comment: [facility] Other Information That Helps Us Care for You: No Feels Safe at Home: Yes Safety Concerns: Feels Safe At This Time Assistive Devices: None Review of Systems Is negative except for the points mentioned in the HPI Physical Exam General Constitutional: Appearance normally developed Head and face: normocephalic and atraumatic Eyes: no ptosis, no anisocoria, and no dysconjugate gaze Respiratory: normal effort Cardiovascular: regular rhythm and regular rate Abdomen: non distended Skin: no rashes, lesions, or ulcers noted Psychiatric: normal judgement and insight, normal mood, and normal affect NEUROLOGIC EXAMINATION: Mental Status:alert, oriented to time, place, person, normal recent memory, normal remote memory, normal attention span, normal concentration, normal language and normal fund of knowledge Cranial Nerves: CN 2 - no visual defect on confrontation and pupils round, equal, reactive to light CN 3, 4, 6 - extra-ocular movements intact and no nystagmus CN 5 - facial sensation intact CN 7 - no facial asymmetry CN 8 - intact hearing CN 9, 10 - palate symmetric, normal gag CN 11 - good shoulder shrug CN 12 - tongue midline MOTOR: Strength was at least antigravity throughout, Pronator drift was absent and There were no abnormal movements SENSATION: intact and symmetric to pinprick, light touch, vibration and joint position GAIT: stable, no ataxia and can perform tandem walking COORDINATION: no ataxia with finger to nose testing and heel to olvera testing REFLEXES: cannot assess over telemedicine Results & Data Vital Signs (Past 12 Hours) Vital Signs Temp Pulse Pulse Resp BP Pulse Ox O2 Del Method 11/28/23 15:20 36.8 C 61 16 161/77 H 95 Room Air 11/28/23 11:05 36.7 C 63 16 135/76 96 Room Air 11/28/23 08:00 54 L Laboratory Results Abnormal lab results 11/27/23 11/28/23 Range/Units 17:23 05:55 RBC 4.52 L (4.70-6.10) M/uL Hct 41.6 L (42.0-52.0) % Lymph # (Auto) 0.46 L 0.49 L (1.20-3.40) K/uL [place] # (Auto) 0.87 H 1.04 H (0.11-0.59) K/uL BUN 32 H (6-23) mg/dl BUN/Creatinine Ratio 28.3 H 24.4 H (10-20) Glucose 102 H (70-99(Fasting)) mg/dl Total Bilirubin 2.7 H (0.2-1.0) mg/dl Alkaline Phosphatase 151 H (34-104) U/L Diagnostic Findings Chest X-Ray 11/27/23 17:18 XR chest 1V portable CLINICAL HISTORY: Chest pain, nonspecific TECHNIQUE: Single frontal radiograph of the chest was obtained. Comparison: None available at the time of this dictation. FINDINGS: No lines and tubes are seen. Cardiomegaly is noted. The aortic arch is calcified. The lungs are clear. No evidence of pleural effusion or pneumothorax. IMPRESSION: No acute chest disease. ACT 112: Negative or not required by law. Electronically signed by: Syed Kahn M.D. 11/27/2023 6:42 PM Head CTA 11/27/23 17:18 CR Exam(s): CTA HEAD W/WO Contrast IV Amt: 119 cc opti 320 EXAM: CT Angiography Head Without and With Intravenous Contrast CLINICAL HISTORY: Reason for exam: ams. TECHNIQUE: Axial computed tomographic angiography images of the head without and with intravenous contrast. CTDI is 35 mGy and DLP is 490.49 mGy-cm. Automated exposure control was utilized for the study. A dose lowering technique was utilized adhering to the principles of ALARA. MIP reconstructed images were created and reviewed. CONTRAST: Patient received 119 cc opti 320 of IV contrast COMPARISON: No relevant prior studies available. FINDINGS: VASCULATURE: Right internal carotid artery: Atherosclerotic calcifications within the cavernous right ICA causing approximately 50% stenosis. No aneurysm. Right anterior cerebral artery: Unremarkable. No occlusion or significant stenosis. No aneurysm. Right middle cerebral artery: No visualized thrombus within the right MCA. No aneurysm. Right posterior cerebral artery: Unremarkable. No occlusion or significant stenosis. No aneurysm. Right vertebral artery: Unremarkable as visualized. Left internal carotid artery: Atherosclerotic calcifications within the left cavernous ICA causing approximately 75% stenosis. No aneurysm. Left anterior cerebral artery: Unremarkable. No occlusion or significant stenosis. No aneurysm. Left middle cerebral artery: Unremarkable. No occlusion or significant stenosis. No aneurysm. Left posterior cerebral artery: Unremarkable. No occlusion or significant stenosis. No aneurysm. Left vertebral artery: Unremarkable as visualized. Basilar artery: Unremarkable. No occlusion or significant stenosis. No aneurysm. HEAD: Brain: Low-attenuation within the right posterior temporal lobe suspicious for acute infarct. No hemorrhage or mass-effect. Ventricles: Unremarkable. No ventriculomegaly. Bones/joints: No acute fracture. Soft tissues: Unremarkable. Sinuses: Unremarkable as visualized. No acute sinusitis. Mastoid air cells: Unremarkable as visualized. No mastoid effusion. IMPRESSION: 1. Low-attenuation within the right posterior temporal lobe suspicious for acute infarct. No hemorrhage or mass-effect. 2. No visualized thrombus within the right MCA. 3. Atherosclerotic calcifications within the cavernous right ICA causing approximately 50% stenosis. 4. Atherosclerotic calcifications within the left cavernous ICA causing approximately 75% stenosis. Communications: Call Doctor Stroke Electronically signed by: Panchito Clements MD 11/27/23 19:35 PM Neck CTA 11/27/23 17:18 Exam(s): CTA NECK With Contrast IV Amt: 119 cc opti 320 EXAM: CT Angiography Neck With Intravenous Contrast CLINICAL HISTORY: Reason for exam: ams. TECHNIQUE: Routine carotid CT angiography protocol was performed with intravenous contrast. NASCET criteria using the distal ICAs for comparison were used for evaluation of stenoses. CTDI is 35.29 mGy and DLP is 624.41 mGy-cm. Automated exposure control was utilized for the study. A dose lowering technique was utilized adhering to the principles of ALARA. MIP reconstructed images were created and reviewed. CONTRAST: Patient received 119 cc opti 320 of IV contrast COMPARISON: None. FINDINGS: VASCULATURE: Right common carotid artery: Unremarkable. No occlusion or significant stenosis. No dissection. Right internal carotid artery: Atherosclerotic calcifications at the right carotid bulb. Less than 50% stenosis. No dissection. Right vertebral artery: Unremarkable. No occlusion or significant stenosis. No dissection. Left common carotid artery: Unremarkable. No occlusion or significant stenosis. No dissection. Left internal carotid artery: Unremarkable. Extracranial segment is patent with no occlusion or significant stenosis. No dissection. Left vertebral artery: Unremarkable. No occlusion or significant stenosis. No dissection. Aorta: Mild aneurysmal proximal descending thoracic aorta measuring 4. 1 cm. NECK: Bones/joints: Multilevel degenerative changes within the cervical spine. No acute fracture. Soft tissues: Unremarkable. Lung apices: Clear. CAROTID STENOSIS REFERENCE USING NASCET CRITERIA: % ICA stenosis = (1 - narrowest ICA diameter/diameter of distal cervical ICA) x 100. Mild - <50% stenosis. Moderate - 50-69% stenosis. Severe - 70-94% stenosis. Near occlusion - 95-99% stenosis. Occluded - 100% stenosis. IMPRESSION: 1. No flow-limiting stenosis within the cervical arteries. 2. 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 Electronically signed by: Panchito Clements MD 11/27/23 19:29 PM Brain MRI 11/27/23 21:34 CR Exam(s): MRI HEAD W/WO Contrast IV Amt: 8cc gadavist EXAM: MR Head Without and With Intravenous Contrast CLINICAL HISTORY: Stroke TECHNIQUE: Magnetic resonance images of the head/brain without and with intravenous contrast in multiple planes. CONTRAST: Patient received 8cc gadavist of IV contrast COMPARISON: CTA head 11/27/2023 FINDINGS: Brain: Moderate to large acute to subacute infarct of the right temporal lobe. Moderate periventricular white matter T2/flair signal abnormalities are most consistent with chronic microangiopathy. No hemorrhage. No abnormal enhancement. Ventricles: Unremarkable. No ventriculomegaly. Bones/joints: Unremarkable. No acute fracture. Sinuses: Unremarkable as visualized. No acute sinusitis. Mastoid air cells: Unremarkable as visualized. No mastoid effusion. Orbits: Unremarkable as visualized. IMPRESSION: Moderate to large acute to subacute infarct of the right temporal lobe. Communications: Call Doctor Stroke Electronically signed by: Paige Tanner MD 11/28/23 00:29 AM Medications Administered Home Medications Medication Instructions Recorded Confirmed Last Taken ascorbic acid (vitamin C) 500 mg 500 mg PO QDL 01/24/23 11/27/23 11/27/23 capsule atorvastatin 40 mg tablet 40 mg PO QPM 01/24/23 11/27/23 11/26/23 glucosam 750 mg-chondroi 100 1 tab PO QDL 01/24/23 11/27/23 11/27/23 mg-hyalur 1.65 mg-CF borate 108 mg tablet ([facility]) levetiracetam 500 mg tablet 500 mg PO BID 01/24/23 11/27/23 11/26/23 lisinopril 20 mg tablet 20 mg PO BID 01/24/23 11/27/23 11/26/23 metoprolol succinate 25 mg 12.5 mg PO QPM 01/24/23 11/27/23 11/26/23 tablet,extended release 24 hr multivitamin (Multiple Vitamins 1 tab PO QDL 01/24/23 11/27/23 11/27/23 tablet) acetaminophen 500 mg tablet 500 - 1,000 mg PO Q6H PRN 11/27/23 11/27/23 Unknown (Tylenol Extra Strength) PAIN/FEVER amlodipine 2.5 mg tablet 2.5 mg PO QAM 11/27/23 11/27/23 11/27/23 tamsulosin 0.4 mg capsule 0.4 mg PO QPM 11/27/23 11/27/23 11/26/23 trazodone 50 mg tablet 50 mg PO QPM 11/27/23 11/27/23 11/26/23 Active Medications Generic Name Dose Route Start Last Admin Trade Name Freq PRN Reason Stop Dose Admin Amlodipine Besylate 2.5 mg 11/28/23 09:00 11/28/23 09:04 Amlodipine Besylate 5 Mg Tab PO 12/28/23 08:59 2.5 mg QAM MARJORIE Administration Ascorbic Acid 500 mg 11/28/23 11:30 11/28/23 11:55 Ascorbic Acid 500 Mg Tab PO 12/28/23 11:29 500 mg QDL MARJORIE Administration Aspirin 81 mg 11/28/23 09:00 11/28/23 09:04 Aspirin 81 Mg Ectab PO 12/28/23 08:59 81 mg QAM MARJORIE Administration Levetiracetam 500 mg 11/27/23 23:48 11/28/23 09:04 Levetiracetam 500 Mg Tab PO 12/27/23 23:47 500 mg BID MARJORIE Administration Multivitamins/Minerals 1 tab 11/28/23 11:30 11/28/23 11:55 Cerovite Adv Formula Tab PO 12/28/23 11:29 1 tab QDL MARJORIE Administration
[2023-11-28] MEDS ORDERED: STROKE PATIENT DISCHARGE STA (16:30)
--- NOTE | 2023-11-28 18:07 | Discharge Summary ---
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 For the subdural hematoma he did not had any surgeries. He again soon presented with seizures and at the time seems subdural hematoma was getting bigger and was loaded with Dilantin as per records. As per daughter since then his Eliquis and aspirin was stopped. In 2022 he was started treatment for tonsillar cancer with chemo and radiation and finished with therapy. And since then he is in remission as per daughter. Currently lives alone. Ambulates without support though is somewhat wobbly as per daughter. Eats regular food. No recent illness. Patient seems today around 230pm playing bingo when he suddenly became confused for about 5 minutes and then after that he was not able to use his left arm ,EMS was called and brought him here .Currently is back to his usual self. CT scan showing possible CVA. Currently alert and oriented. Denies any headache. Denies any dizziness. No blurred vision. Somewhat hard of hearing. No runny nose. No sore throat. No cough. No fevers. No chest pain or shortness of breath. No nausea and abdominal pain. Normal bowel and bladder movements. Ambulated to bathroom in Er per daughter.Hemodynamics are okay. Per ER initially has been difficult to get him admitted but finally agreed. Daughter is in the room who provided most of the history. Past medical history as mentioned above Past surgical history. Left carotid endarterectomy in 2020 Social history. Quit smoking about 20-25 years ago. Smoked 1 pack a day for many years as per daughter. Seems had [id number] smoking. Was a heavy drinker and quit alcohol about 3 years ago as per daughter. Family history. Sister had lung cancer. Admission Exam Per Admitting Provider Physical Exam: General- Not in distress.Hard of hearing Head- atraumatic Eyes- PERRL. ENT- oropharynx clear Neck- supple, no JVD. Lungs- clear to auscultation no wheezing or crackles Heart- ir rhythm; no murmur, no gallop. Abdomen- normal bowel sounds, soft, nontender, no distension Extremities- no pretibial edema, no erythema seen Neuro- alert, oriented ; PERRL, no facial palsy; no dysarthria; motor 5/5 bilaterally; no pronator drift, normal co ordination of movements, sensations and position sense intact. obeys simple commands Skin- warm & dry Principal Diagnosis Acute right temporal lobe infarct, atrial fibrillation, history of seizures, hyperlipidemia Discharge Exam Sitting at the edge of the bed without any acute distress Constitutional well developed, well nourished and average body habitus; not ill appearing Eyes PERRL, conjunctivae normal, anicteric sclerae ENMT external ear and nose normal, oropharynx normal Neck trachea midline, no thyromegaly Respiratory no respiratory distress Auscultation: lungs clear to auscultation bilaterally Cardiovascular Rate/Rhythm: regular rate and regular rhythm; not tachycardic Heart Sounds: normal S1 and normal S2; no murmur Extremities: no edema Gastrointestinal (Abdomen) Inspection/Auscultation: normal bowel sounds; abdomen not distended Percussion/Palpation: abdomen soft; abdomen nontender Psychiatric Speech: + pressured speech Affect: + anxious affect Lymphatic no cervical or axillary lymphadenopathy Discharge Data Allergies Allergy/AdvReac Type Severity Reaction Status Date / Time No Known Allergies Allergy Verified 11/27/23 19:43 Consultations 11/27/23 20:20 ED Decision to Admit Stat 11/28/23 08:00 Consult Cardiology Routine Consult Neurology Routine Ordered Studies 11/27/23 17:18 CT angio head wo/w Stat CT angio neck with con Stat 11/27/23 21:34 MRI Brain [MR brain wo/w con] Stat Hospital Course (1) Acute CVA (cerebrovascular accident): 78-year-old male with past medical history significant for hypertension, hyperlipidemia, atrial fibrillation, history of CVA 2020 per records and in April 2022 he had a fall and had right convex subdural hematoma also found to have COVID and was status with intubation at the time and as per daughter at t hat time he was 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 For the subdural hematoma he did not had any surgeries. He again soon presented with seizures and at the time seems subdural hematoma was getting bigger and was loaded with Dilantin as per records. As per daughter since then his Eliquis and aspirin was stopped. In 2022 he was started treatment for tonsillar cancer with chemo and radiation and finished with therapy. And since then he is in remission as per daughter. Currently lives alone. Ambulates without support though is somewhat wobbly as per daughter. Eats regular food. No recent illness. Patient seems today around 230pm playing bingo when he suddenly became confused for about 5 minutes and then after that he was not able to use his left arm ,EMS was called and brought him here .Currently is back to his usual self. CT scan showing possible CVA. Currently alert and oriented. Denies any headache. Denies any dizziness. No blurred vision. Somewhat hard of hearing. No runny nose. No sore throat. No cough. No fevers. No chest pain or shortness of breath. No nausea and abdominal pain. Normal bowel and bladder movements. Ambulated to bathroom in Er per daughter.Hemodynamics are okay. Per ER initially has been difficult to get him admitted but finally agreed. Daughter is in the room who provided most of the history. Acute CVA Around 2:30 PM had an episode of confusion for 5 minutes and not able to use his left upper extremity. Currently seems back to normal CTA head showing Low-attenuation within the right posterior temporal lobe suspic ious for acute infarct. No hemorrhage or mass-effect. 75% stenosis in left ICA [id number] was given in the ER. Will continue with aspirin 81mg daily Will allow permissive hypertension Neurochecks MRI results came back showing moderate to large acute to subacute infarct of the right temporal lobe- d/w [place] tele neurology as its large infarct advised to wait atleast 5-7 days before starting anticoagulation for A.fib if no other contraindications exist as he had history of fall before. Speech evaluation PT OT evaluation Echo of the heart showedmild concentric LVH, LV wall motion is normal, EF 55 to 60%, left atrium is severely dilated, aortic valve sclerosis mild without significant stenosis, moderate mitral regurgitation and mild tricuspid regurgitation and pulmonary artery systolic pressure is estimated to be 35 to 40 mmHg Appreciate cardiology input and recommendation Appreciate neurology input and recommendations Continue aspirin for 5 days and then start Eliquis on 12/03/2023 Drink more fluid to avoid dehydration A-fib Patient has history of A-fib On metoprolol aspirin and Eliquis stopped after subdural hematoma Will follow echo-As above Cardiology consult in a.m. for further recommendations History of seizures On Keppra Hypertension Continue amlodipine and metoprolol Hold lisinopril for permissive hypertension Hyperlipidemia On statin BPH On Flomax History of tonsil cancer left side Status post chemo and radiation Status post left CEA DVT prophylaxis SCDs Disposition Telemetry Full code. Detailed discussion with the daughter in presence of the patient in the room Tried to persuade him to stay for another night to make sure the stroke does not get any worse Discussed about the risk of worsening of his symptoms and/or bleeding in the brain But the patient did not want to stay He was discharged home with the daughter Total Time Total Time Spent Total Time Spent (In Minutes): 35 minutes Discharge Plan Discharge Items Patient Disposition: Home - Self-Care Reason For Visit: CVA Discharge Diagnosis: Acute right temporal lobe infarct, atrial fibrillation, history of seizures, hyperlipidemia Activity: As commented below Activity Comment: Take it easy until you are seen by your PCP Non-emergency contact: Primary Care Provider Call non-emergency contact if: you have any medication questions and your symptoms worsen Follow-up/Referrals: Mary Ann Ha [Primary Care Provider] - (Please make an appointment with your PCP within 7 days) Diet: Heart Healthy Addtl Attending Provider Instructions: Please take precaution to avoid falls Take aspirin daily as advised until 12/03/2023. Start Eliquis 5 mg twice daily from 12/03/2023 He will need to have a follow-up with neurologist in about 3-4 weeks Keep follow-up appointment with your application engineer Pending Studies at Discharge: No Stand-Alone Forms: My [facility], Smoking Cessation, Medications to Prevent Stroke Medications and DC Order Prescriptions: New aspirin 81 mg Tablet,Delayed Release (Dr/Ec) 81 mg PO QAM Qty: 5 0RF Rx Instructions: Stop aspirin on 12/03/2023 Eliquis 5 mg tablet 5 mg PO BID Qty: 60 0RF Rx Instructions: Start Eliquis on 12/03/2023 Continued metoprolol succinate 25 mg tablet extended release 24 hr 12.5 mg PO QPM lisinopril 20 mg tablet 20 mg PO BID levetiracetam 500 mg tablet 500 mg PO BID atorvastatin 40 mg tablet 40 mg PO QPM multivitamin [Multiple Vitamins] Tablet 1 tab PO QDL [facility] 750 mg-100 mg- 1.65 mg-108 mg tablet 1 tab PO QDL ascorbic acid (vitamin C) 500 mg capsule 500 mg PO QDL trazodone 50 mg tablet 50 mg PO QPM amlodipine 2.5 mg tablet 2.5 mg PO QAM acetaminophen [Tylenol Extra Strength] 500 mg Tablet 500 - 1,000 mg PO Q6H PRN (Reason: PAIN/FEVER) tamsulosin 0.4 mg capsule 0.4 mg PO QPM Discharge Orders: Discharge Order (Routine); Ordered 11/28/23 Ordered By: Hayley Bello Admission Data Admit Date/Time: 11/27/23 21:42 Attending Provider: Hayley Bello Admit Provider: Gregory Lew Primary Care Provider: Mary Ann Ha Other Providers: Gregory Lew; Nakul Childers; Bailee Malone; Hola Coleman; Bailee Marie; Kervin Henderson; Ignacio Hudson; Ugo Galarza; Jaydon Hinojosa; Maria Ines Deshpande; Yaw Tariq; Kj Cowan; Halima Newton; Justice Miramontes; Alejandra Ordonez; Jacy Manning; Jaydon Garcia Other Interventions: Discharge Summary Assessment (RN) Last Done: 11/28/23 16:35
[2023-11-28] MEDS ORDERED: traZODone HCL 50 MG TAB PO SCH (21:00)
[2023-11-28] MEDS ORDERED: METOPROLOL SUCC 25MG EXT REL TAB PO SCH (21:00)
[2023-11-28] MEDS ORDERED: ATORVASTATIN 40 MG TAB PO SCH (21:00)
[2023-11-28] MEDS ORDERED: TAMSULOSIN HCL 0.4 MG CAP PO SCH (21:00)
--- NOTE | 2023-11-30 10:06 | Pharmacy Report ---
Pharmacist Stroke Counseling - Date of Service November 30, 2023 - Scope: Pharmacy has been consulted to provide medication discharge counseling for this patient admitted with [ischemic stroke] [hemorrhagic stroke] [transient ischemic attack] as per the Pharmacist Discharge Counseling for Stroke Patients [employer] . - Medications on Discharge: Home Medications Medication Instructions Recorded Confirmed ascorbic acid (vitamin C) 500 mg 500 mg PO QDL 01/24/23 11/27/23 capsule atorvastatin 40 mg tablet 40 mg PO QPM 01/24/23 11/27/23 glucosam 750 mg-chondroi 100 1 tab PO QDL 01/24/23 11/27/23 mg-hyalur 1.65 mg-CF borate 108 mg tablet ([facility]) levetiracetam 500 mg tablet 500 mg PO BID 01/24/23 11/27/23 lisinopril 20 mg tablet 20 mg PO BID 01/24/23 11/27/23 metoprolol succinate 25 mg 12.5 mg PO QPM 01/24/23 11/27/23 tablet,extended release 24 hr multivitamin (Multiple Vitamins 1 tab PO QDL 01/24/23 11/27/23 tablet) acetaminophen 500 mg tablet 500 - 1,000 mg PO Q6H PRN 11/27/23 11/27/23 (Tylenol Extra Strength) PAIN/FEVER amlodipine 2.5 mg tablet 2.5 mg PO QAM 11/27/23 11/27/23 tamsulosin 0.4 mg capsule 0.4 mg PO QPM 11/27/23 11/27/23 trazodone 50 mg tablet 50 mg PO QPM 11/27/23 11/27/23 New Rx's Medication Instructions Recorded apixaban 5 mg tablet (Eliquis) 5 mg PO BID #60 tabs 11/28/23 aspirin 81 mg tablet,delayed 81 mg PO QAM #5 tabs 11/28/23 release - Action: The above medications, specifically ones for stroke treatment/prophylaxis, have been reviewed in detail with the patient and/or patient leather goods sales representative(s) prior to discharge. This includes indication, common adverse reactions, drug interactions, and medication administration. Medication counseling has been employed using the teach-back method to ensure understanding. - Outcome: The patient and/or patient leather goods sales representative(s) have demonstrated understanding of the medications. Additional comments: Spoke with patient's leather goods sales representative at preferred number, she states he attended his PCP appointment yesterday and they went over all his medication changes thoroughly. Had been on Eliquis in the past. No further questions at this time and is aware of all the changes. Thank you for allowing pharmacy to be involved in the care of this patient. Please call [phone] with any additional questions
== END 2023-11-28 16:52 | disposition home or self-care (01) | DRG 65 ==
LOC: ED 16:41 → 2S 21:42 → SUATTDRO 21:42 → 2S 23:03